=== PATIENT | female | born 1950 | race Caucasian/White ===

== ENCOUNTER 2017-03-08 08:24 | Emergency (ER) | payer MEDICARE, OTHER ==
[~2017-03-08 08:24] MED LIST: ASPIR 8181 M1 PO; CIPRO500 M2 PO; ENULOSE10 GM/151 PO; EQL FISH OIL 11 EAC2 PO; ETODOLAC500 MG; GLUCAGON HCL1 MG IM; GLUCOPHAGE500 MG; HUMALOG100 U/ML SQ; HUMULIN N100 U/ML; HUMULIN R100 U/ML; HUMULIN R100 UNITS/ SC; HYDROCHLOROTHIA25 M1 PO; LEVEMIR100 U/ML SQ; LEVEMIR100 UNITS/ SC; LISINOPRIL10 MG; METFORMIN HCL500 M3 PO; NITROSTAT0.4 MG SL; NORCO 5/325 TAB1 TAB PO; NOVOLIN R100 UNIT/1 SC; PRINIVIL20 M1 PO; RIZATRIPTAN10 M3 PO; SERAX10 MG PO; TOPROL XL25 M1 PO; ZETIA10 M1 PO; ZETIA10 MG
[2017-03-08] MEDS ORDERED: GLUCAGON HCL1 MG SC (08:51)
== END 2017-03-08 09:55 ==
LOC: EDMED 08:24
DX: T38.3X1A Poisoning by insulin and oral hypoglycemic [antidiabetic] drugs, accidental (unintentional), initial encounter (principal); E11.9 Type 2 diabetes mellitus without complications; I10 Essential (primary) hypertension; Z79.4 Long term (current) use of insulin; Z79.82 Long term (current) use of aspirin; Z79.899 Other long term (current) drug therapy; Z90.49 Acquired absence of other specified parts of digestive tract